=== PATIENT | male | born 1990 | race Caucasian/White ===

== ENCOUNTER 2019-09-10 01:15 | Emergency (ER) | payer OTHER ==
[~2019-09-10] VITALS: Ht 175.3 cm; Wt 90.7 kg
[2019-09-10 01:29] VITALS: BP 132/82
--- NOTE | 2019-09-10 01:34 | NUR ---
FSBS UPON TRIAGE: 82
--- NOTE | 2019-09-10 02:22 | NUR ---
Patient discharged to home in stable condition. Written and verbal after care instructions given. Patient verbalizes understanding of instruction. Pt ambulatory with a steady gait
== END 2019-09-10 02:23 | disposition home or self-care (01) ==
LOC: ER 01:17
DX: R53.83 Other fatigue (principal); Z13.9 Encounter for screening, unspecified; Z98.890 Other specified postprocedural states
CPT/HCPCS: 36415; 80305; 82962-TC; G0480